=== PATIENT | female | born 1995 | race Hispanic/Latino ===

== ENCOUNTER 2017-06-16 09:10 | Day surgery (SDC) | payer BC ==
[2017-06-15 14:32] VITALS: BMI 20.5
[2017-06-16] MEDS ORDERED: Oxymetazoline HCl 0.05% ( 15 ML ) ONE ×2 (10:40→10:54)
[2017-06-16] MEDS ORDERED: Lidocaine 1% w/Epinephrine 1:200K 30 ML VIAL ONE (10:54)
[2017-06-16] MEDS ORDERED: Midazolam HCl 2 mg/2 ml Vial ONE (11:01)
[2017-06-16] MEDS ORDERED: Fentanyl 100 MCG/2 ML VIAL ONE (11:01)
--- NOTE | 2017-06-17 12:52 | OP ---
DATE OF PROCEDURE: 06/16/2017 PREOPERATIVE DIAGNOSES: 1. Recurrent acute sinusitis. 2. Chronic rhinosinusitis. 3. Right middle turbinate dona bullosa. 4. Bilateral inferior turbinate hypertrophy. 5. Nasal obstruction. POSTOPERATIVE DIAGNOSES: 1. Recurrent acute sinusitis. 2. Chronic rhinosinusitis. 3. Right middle turbinate dona bullosa. 4. Bilateral inferior turbinate hypertrophy. 5. Nasal obstruction. PROCEDURES: 1. Bilateral endoscopic sinus surgery, total ethmoidectomies. 2. Bilateral endoscopic sinus surgery, maxillary antrostomies. 3. Bilateral endoscopic sinus surgery, frontal sinusotomies. 4. Bilateral inferior turbinate submucosal resection. 5. Endoscopic resection of right middle turbinate dona bullosa. SURGEON: Gonzalez Payton M.D. ESTIMATED BLOOD LOSS: 20 mL. COMPLICATIONS: None. ANESTHESIA: GETA. PROCEDURE IN DETAIL: The patient was taken to the operating room and placed supine on the table. Ge neral endotracheal anesthesia was obtained by the Anesthesia staff. Tube was secured in the left low er lip. The patient was placed in the beach chair position. Following this, Afrin pledgets were micaela kathleen in nasal cavity, as the patient was prepped and draped for standard nasal procedure. Following t his, the pledgets were removed. A 1% lidocaine with 1:100,000 epinephrine was injected via a 27-gaug e needle into the middle turbinates, lateral nasal wall, and inferior turbinates bilaterally. Follow ing this, the right middle turbinate dona bullosa was large and obstructing access to the middle me atus. A vertical incision with a sickle knife was made in the anterior face of the middle turbinate. Following this, the straight Blakesley forceps and the microdebrider was used to resect the lateral wall of this right middle turbinate dona bullosa. Following this, the uncinate process was then v isualized bilaterally and was anteriorly fractured using the ball-ended probe. Using the straight Tiburcio cason forceps and microdebrider, the uncinate was removed. The natural maxillary sinus ostia was t hen identified and was gently widened using the ball-ended probe and the straight Blakesley forceps. Following this, the ethmoidal bulla was identified bilaterally and was punctured on its medial and i nferior aspect and was removed using the microdebrider. The grand lamella was then identified and wa s punctured into the posterior ethmoidal cells. Working from posterior to anterior, the ethmoidal ce lls were opened in a mucosal-sparing technique. Following this, the nasal cavity was observed from t his, the 45-degree scope and the 40-degree curved microdebrider blade was then used to further resect the anterior ethmoidal cells exposing the frontal sinus ostia. The frontal sinus ostia bilaterally was then widened using the microdebrider and upbiting Blakesley forceps bilaterally. Following this, the nasal cavity was irrigated. Meropacks were placed within the middle meatus. The inferior turbi nates were then punctured on the anterior and inferior aspect with the submucosal microdebrider and s ubmucosal resection was performed of the anterior-inferior portions of the inferior turbinates, bilat eral. The patient tolerated the procedure well.
== END 2017-06-16 14:25 | disposition home or self-care (01) ==
LOC: SDC 09:10
PROVIDERS: ATTEND Otolaryngology Plastic Surgery within the Head & Neck
PROC: 099R8ZZ Drainage of Left Maxillary Sinus, Via Natural or Artificial Opening Endoscopic (ICD-10-PCS; principal; 2017-06-16)
PROC: 09TV8ZZ Resection of Left Ethmoid Sinus, Via Natural or Artificial Opening Endoscopic (ICD-10-PCS; principal; 2017-06-16)
PROC: 09QT8ZZ Repair Left Frontal Sinus, Via Natural or Artificial Opening Endoscopic (ICD-10-PCS; principal; 2017-06-16)
PROC: 09BL8ZZ Excision of Nasal Turbinate, Via Natural or Artificial Opening Endoscopic (ICD-10-PCS; principal; 2017-06-16)
PROC: 09QS8ZZ Repair Right Frontal Sinus, Via Natural or Artificial Opening Endoscopic (ICD-10-PCS; principal; 2017-06-16)
PROC: 099Q8ZZ Drainage of Right Maxillary Sinus, Via Natural or Artificial Opening Endoscopic (ICD-10-PCS; principal; 2017-06-16)
PROC: 09TU8ZZ Resection of Right Ethmoid Sinus, Via Natural or Artificial Opening Endoscopic (ICD-10-PCS; principal; 2017-06-16)
DX: J32.9 Chronic sinusitis, unspecified (principal); J34.3 Hypertrophy of nasal turbinates; J30.9 Allergic rhinitis, unspecified; J34.2 Deviated nasal septum
CPT/HCPCS: 36415; 85014; J0131; J2250; J3010